=== PATIENT | female | born 1975 | race American Indian/Alaskan Native ===

== ENCOUNTER 2019-03-08 14:31 | Outpatient (CLI) | payer OTHER | END 2019-03-08 14:32 | disposition home or self-care (01) | LOC: LABHHL 14:31 | PROVIDERS: ATTEND Surgery | DX: C50.911 Malignant neoplasm of unspecified site of right female breast (principal) | CPT/HCPCS: 88305; 88341; 88342 ==

== ENCOUNTER 2019-03-31 08:43 | Outpatient (CLI) | payer OTHER ==
--- NOTE | 2019-03-31 15:43 | Magnetic Resonance Report ---
BILATERAL BREAST MR WITHOUT AND WITH GADOLINIUM INDICATION: Newly diagnosed right breast cancer. Status post right ultrasound-guided needle biopsy o f 2 right breast masses on 03/07/2019. Pathology: 9:00 invasive carcinoma with medullary features grade 3 and 8:00 2 cm from the nipple invasive carcinoma with medullary features grade 3 ER/VA positive an d HER-2 positive with a Ki-67 75% at COMPARISONS: 02/05/2019 and 10/22/2018 mammograms TECHNIQUE: Axial 1.0 mm T1 without, axial high-resolution 2.0 mm T2 and axial 1.0 mm dynamic vibrant high-resolution postcontrast T1 fat saturation sequences on a 1.5 Shellie magnet. The examination was p erformed with an 8-channel dedicated [place] breast coil. Post-processing with CAD and subtraction was performed on an [employer] workstation. 18 cc of MultiHance was injected without incident for the con trast portion of the exam. Consent was obtained prior to the administration of the contrast. FINDINGS: RIGHT BREAST: Minimal background parenchymal enhancement. A mass at 8:30 o'clock 3.6 cm from the nipp le contains a biopsy clip and correlates with the known cancer. It measures 2.3 x 2.0 x 1.8 cm and de monstrates heterogeneous enhancement with mixed kinetics, 127% peak enhancement and 33% type III wash out. A second mass at 8:00 5.2 cm from the nipple measures 1.4 x 1.2 x 1.1 cm. It contains a biopsy c lip and correlates with a known cancer. This mass demonstrates heterogeneous enhancement with mixed k inetics, 129% peak enhancement and 3% type III washout. No other mass or suspicious enhancement. No s uspicious lymph nodes. LEFT BREAST: Minimal background parenchymal enhancement. No mass or suspicious enhancement. No suspic ious lymph nodes. IMPRESSION: Known right breast cancers at at 8:30 o'clock and at 8:00. No other suspicious lesion of either breast. No suspicious lymph nodes. BI-RADS Category 6--Known Cancer Signer Name: Rubio Hicks MD Signed: 03/31/2019 3:39 PM Workstation Name: [id number]
== END 2019-03-31 08:44 | disposition home or self-care (01) ==
LOC: SPVIMAG 08:43
PROVIDERS: ATTEND Surgery
DX: C50.511 Malignant neoplasm of lower-outer quadrant of right female breast (principal)
CPT/HCPCS: A9577; C8908; 77049

== ENCOUNTER 2019-04-12 08:45 | Day surgery (SDC) | payer OTHER ==
[~2019-04-12 08:45] MED LIST: ANCEF/STERILE WATER 2 GM/20 ML 2 GM/20 ML SYRINGE IV NR
[2019-04-12] MEDS ORDERED: ZOFRAN IV PRN (09:48)
[2019-04-12] MEDS ORDERED: SUBLIMAZE IV PRN (09:48)
--- NOTE | 2019-04-12 09:49 | Anesthesia Day of Surgery ---
Anesthesia Day of Surgery - Day of Surgery Patient Examined: Yes Patient H&P Reviewed: Yes Patient is NPO: Yes
--- NOTE | 2019-04-12 09:53 | Anesthesia Consultation ---
Anesthesia Consult and Med Hx Date of service: 04/12/19 - Airway Anesthetic Teeth Evaluation: Good ROM Head & Neck: Adequate Mallampati Class: Class II Intubation Access Assessment: Good - Pre-Operative Health Status ASA Pre-Surgery Classification: ASA2 Proposed Anesthetic Plan: General (MAC; GA if needed), MAC - Pulmonary Hx Smoking: No Hx Sleep Apnea: No - Central Nervous System Hx Psychiatric Problems: No - Hematic Hx Anemia: No - Other Systems Hx Alcohol Use: No Hx Substance Use: No Hx Cancer: Yes (R breast)
[2019-04-12] MEDS ORDERED: ceFAZolin 2 GM in NACL 0.9% 100 ML IV ONE (10:00)
[2019-04-12] MEDS ORDERED: LACTATED RINGERS 1,000 ML IV SCH (10:00)
[2019-04-12] MEDS ORDERED: DIPRIVAN 10 MG/ML IV ONE ×2 (10:20→11:15)
[2019-04-12] MEDS ORDERED: VERSED ONE (10:21)
[2019-04-12] MEDS ORDERED: XYLOCAINE MPF 2% ONE (10:22)
[2019-04-12] MEDS ORDERED: SUBLIMAZE ONE (10:23)
[2019-04-12] MEDS ORDERED: HEPARIN 10,000 UNITS/10 ML IV ONE (10:30)
[2019-04-12] MEDS ORDERED: NACL 0.9% IR ONE (10:30)
[2019-04-12] MEDS ORDERED: XYLOCAINE 1% 20 mL INFILTRATI ONE (10:30)
[2019-04-12] MEDS ORDERED: NACL 0.9% IV ONE (10:30)
[2019-04-12] MEDS ORDERED: MARCAINE 0.25% INFILTRATI ONE ×2 (10:30→10:47)
[2019-04-12] MEDS ORDERED: XYLOCAINE 1% 20 mL ONE (10:47)
[2019-04-12] MEDS ORDERED: HEPARIN 10,000 UNITS/10 ML ONE (10:47)
[2019-04-12] MEDS ORDERED: NACL 0.9% 100 ML ONE (10:47)
--- NOTE | 2019-04-12 11:55 | Short Stay Summary ---
Short Stay Documentation Date of service: 04/12/19 - History Principal diagnosis: right breast cancer H&P: obtained from office - Allergies and Medications Current Medications: Allergies No Known Allergies Allergy (Unverified 05/03/15 13:51) Home Medications Medication Instructions Recorded Confirmed Last Taken Type Ergocalciferol [Vitamin D2] 50,000 units PO 1XW 04/11/19 04/11/19 Unknown History Active Medications Fentanyl (Sublimaze) 50 mcg IV Q5MIN PRN PRN Reason: Pain , Severe (7-10) Stop: 04/12/19 20:00 Cefazolin Sodium (Ancef/Sterile Water 2 Gm/20 Ml) 2 gm in 20 mls @ 80 mls/hr IV PREOP NR Stop: 04/12/19 18:00 Lactated Ringer's (Lactated Ringers) 1,000 mls @ 100 mls/hr IV DIRECT KARTHIK Last Admin: 04/12/19 10:00 Dose: 100 mls/hr Documented by: Ondansetron HCl (Zofran) 4 mg IV ONCE PRN PRN Reason: Nausea And Vomiting - Brief post op/procedure progress note Date of procedure: 04/12/19 Pre-op diagnosis: right breast cancer Post-op diagnosis: same Procedure: placement of left internal jugular port a cath, mindray ultrasound guidance Anesthesia: MAC, local Findings: good placement of port without PTX on post op CXR Surgeon: CHASTITY CABAN Estimated blood loss: minimal Pathology: none Condition: stable - Hospital course Hospital course: Pt observed in PACU and discharged to home in stable condition when criteria met - Disposition Condition at discharge: Good Disposition: DC-01 TO HOME OR SELFCARE Short Stay Discharge Plan Activity: no restrictions Diet: regular Wound: open to air, other (see printed discharge instructions) Additional Instructions: see printed discharge instructions Follow up with: JAUN ALMANZAR MD [Primary Care Provider] - 7 Days CHASTITY CABAN DO [Staff Physician] - 10 Days Prescriptions: HYDROcodone/APAP 5-325 [[place] 5/325] 1 each PO Q6HR PRN #10 tablet PRN Reason: Pain
--- NOTE | 2019-04-12 12:09 | Fluoroscopy Report ---
FLUOROSCOPY CENTRAL VENOUS DEVICE PLACEMENT HISTORY: Breast cancer, left Lyvgic-z-Esid insertion FINDINGS: Fluoroscopy was provided by radiology during left Kurpba-j-Tcfu insertion. A single image o f the chest was obtained. 43 seconds of fluoroscopy time was utilized. The image demonstrates a left IJ Cznpqs-w-Wjeh which terminates in the superior right atrium. The lungs are generally clear. There is no evidence for pneumothorax or pleural fluid. Heart and mediastinal structures are unremarkable. IMPRESSION: Left Gpylxd-h-Ckcx placement as described. No pneumothorax. Signer Name: Heraclio Torres Jr, MD Signed: 04/12/2019 12:04 PM Workstation Name: [id number]
[2019-04-12 13:17] VITALS: BP 130/66
--- NOTE | 2019-04-12 15:43 | Operative Report ---
PREOPERATIVE DIAGNOSIS: Right breast cancer. POSTOPERATIVE DIAGNOSIS: Right breast cancer. PROCEDURE: Placement of left internal jugular Port-A-Cath, Mindray ultrasound guidance. ANESTHESIA: MAC local. FINDINGS: Good placement of port without pneumothorax and postop chest x-ray. SURGEON: Gale Carlos DO. ESTIMATED BLOOD LOSS: Minimal. PATHOLOGY: None. CONDITION DISPOSITION: The patient is stable to PACU. HISTORY OF PRESENT ILLNESS AND INDICATIONS: The patient is a 44-year-old female who was recently diagnosed with right-sided breast cancer and deemed a candidate for chemotherapy. She was seen in the office. All procedure, risks, benefits and alternatives were discussed with her. Consent was obtained. All questions were answered. PROCEDURE IN DETAIL: The patient was identified in the preoperative area and taken back to the operating room and placed on the operating table in supine position. After anesthesia was induced, bilateral arms were tucked and all bony prominences padded and a shoulder roll was placed. Bilateral upper chest and neck was prepped and draped in the usual sterile fashion. A timeout was performed. The patient was placed in Trendelenburg position and using the [employer] ultrasound, the subclavian and internal jugular veins were identified on the left hand side. Local anesthetic was infiltrated in skin at the intended puncture site. Two attempts were made at access of the left subclavian vein using ultrasound guidance. Both times, there was a return of dark red nonpulsatile blood. However, this was sluggish. Attempts to pass the wire were unsuccessful even using fluoroscopic guidance. Pressure was held at the site for several minutes and hemostasis ensured. Therefore, it was decided to access the left internal jugular vein. This was identified on ultrasound and the skin was anesthetized with local anesthetic. The internal jugular vein on the left was accessed on the first stick and there was return of dark red nonpulsatile blood. The wire was threaded without resistance and position confirmed using fluoroscopy. The needle was then removed and the wire was affixed to the drapes using hemostat. I then turned my attention to creating the pocket. A 4-cm incision was made in the left upper chest after local anesthetic was infiltrated into the skin and subcutaneous tissue. Once the incision was made, dissection was carried down through skin and subcutaneous tissue using Bovie electrocautery until the prepectoral fascia was identified. A subcutaneous pocket was then created for the port using combination of blunt dissection and electrocautery. The pocket was checked for hemostasis along the way. The tunneler and catheter was then inserted through the pocket and to the wire and brought out at the wire. The dilator catheter sheath was then inserted over the wire under direct fluoroscopic guidance. The wire and dilator were removed and the port catheter was inserted through the break-away sheath in the usual fashion. The break-away sheath was removed. The port was then cut to size and assembled in the usual fashion. The catheter was pulled back until the tip was seen in the superior vena cava. The port was sutured into the pocket at two locations using 2-0 Vicryl interrupted sutures. The port was tested with heparinized saline. There was return of dark red blood and the port flushed easily. The port was instilled with 3000 units of heparin. The wounds were checked for hemostasis and then the skin was closed. The deep dermal layer was closed with 3-0 Vicryl interrupted sutures. Both skin incisions were closed with 4-0 Monocryl subcuticular stitches and skin glue. At the end of the case, all sponge, instrument and sharp counts were correct x 2. A postoperative chest x-ray performed showed the port to be in good position without pneumothorax. The patient was taken to PACU in stable condition. JOB# [id number] JUANA/STACI
--- NOTE | 2019-04-13 09:53 | Post Anesthesia Evaluation ---
- Post Anesthesia Evaluation Patient Participated: Yes Airway Patent: Yes Stable Respiratory Function: Yes Nausea/Vomiting: No Temp > 96.8F: Yes Pain Manageable: Yes Adequeate Hydration: Yes Anesthesia Complications: No Block Receding Appropriately: Not Applicable Patient on Ventilator: No
== END 2019-04-12 08:46 | disposition home or self-care (01) ==
LOC: OR 08:45
PROVIDERS: ATTEND Surgery
DX: C50.911 Malignant neoplasm of unspecified site of right female breast (principal); Z79.899 Other long term (current) drug therapy; Z98.890 Other specified postprocedural states
CPT/HCPCS: 36561; 77001; 81025; C1788; J0690; J1644; J2250; J2704; J3010; J7120

== ENCOUNTER 2019-08-22 14:35 | Outpatient (CLI) | payer OTHER ==
--- NOTE | 2019-08-22 15:49 | Mammography Report ---
DIGITAL BILATERAL DIAGNOSTIC MAMMOGRAM WITH CAD, 08/22/2019 INDICATION: Follow-up 2 known right breast cancers after chemotherapy. TECHNIQUE: Digital bilateral mammographic imaging was performed. This examination was interpreted with the benefit of Computer-aided Detection analysis. COMPARISON: 10/22/2018 and 03/07/2019 Breast Density: The breasts are heterogeneously dense, which may obscure small masses. FINDINGS: 2 right outer biopsy clips correlate with known cancers. Mammographic masses have resolved. No mass, architectural distortion or suspicious calcifications. Moderate bilateral skin thickening i s unchanged. IMPRESSION: A positive mammographic response to chemotherapy and no mammographic evidence of malignan cy. Follow up recommendation: Based on additional treatment. BI-RADS Category 6: Known Biopsy-Proven Malignancy. A "normal" or negative report should not discourage follow up or biopsy of a clinically significant f inding. A written summary of these findings will be mailed to the patient. The patient will be entered into a mammography reporting system which will generate a reminder letter for the patient's next appointmen t at the appropriate interval. According to the [employer], yearly mammograms are recommended starting at age 40 and continuing as long as a woman is in good health. Breast MRI is recommended for women with an mary roximately 20-25% or greater lifetime risk of breast cancer, including women with a strong family his tory of breast or ovarian cancer and women who have been treated for Hodgkin's disease. Signer Name: Rubio Hicks MD Signed: 08/22/2019 3:45 PM Workstation Name: [id number]
== END 2019-08-22 14:36 | disposition home or self-care (01) ==
LOC: SPVWC 14:35
PROVIDERS: ATTEND Surgery
DX: C50.911 Malignant neoplasm of unspecified site of right female breast (principal)
CPT/HCPCS: 77066

== ENCOUNTER 2019-09-28 05:54 | Day surgery (SDC) | payer OTHER ==
[~2019-09-28 05:54] MED LIST changes: -ANCEF/STERILE WATER 2 GM/20 ML 2 GM/20 ML SYRINGE IV NR; +ceFAZolin/Water 2 GM/20 ML 2 GM/20 ML SYRINGE IV NR
[2019-09-28] MEDS ORDERED: fentaNYL 100 MCG/2 ML INJ IV PRN (06:00)
[2019-09-28] MEDS ORDERED: CELECOXIB 200 MG CAP PO NR (06:00)
[2019-09-28] MEDS ORDERED: GABAPENTIN 300 MG CAP PO NR (06:00)
[2019-09-28] MEDS ORDERED: MIDAZOLAM 2 MG/2 ML INJ IV NR (06:00)
[2019-09-28] MEDS ORDERED: LACTATED RINGERS 1,000 ML IV SCH (07:00)
[2019-09-28] MEDS ORDERED: METHYLENE BLUE 50 MG/10 ML AMP ONE ×2 (07:22→09:02)
--- NOTE | 2019-09-28 07:22 | Anesthesia Day of Surgery ---
Anesthesia Day of Surgery - Day of Surgery Patient Examined: Yes Patient H&P Reviewed: Yes Patient is NPO: Yes
--- NOTE | 2019-09-28 07:22 | Anesthesia Consultation ---
Anesthesia Consult and Med Hx Date of service: 09/28/19 - Airway Anesthetic Teeth Evaluation: Good ROM Head & Neck: Adequate Mental/Hyoid Distance: Adequate Mallampati Class: Class II Intubation Access Assessment: Good - Pulmonary Exam CTA: Yes - Cardiac Exam Cardiac Exam: No Murmur - Pre-Operative Health Status ASA Pre-Surgery Classification: ASA2 Proposed Anesthetic Plan: General Nerve Block: PEC - Pulmonary Hx Smoking: No Hx Sleep Apnea: No - Central Nervous System Hx Psychiatric Problems: No - Hematic Hx Anemia: Yes ( HGB/HCT 10.0/30.2 (09/21/2019)) - Other Systems Hx Alcohol Use: No Hx Substance Use: No Hx Cancer: Yes
[2019-09-28] MEDS ORDERED: SODIUM CHLORIDE P/F VIAL 10 ML 10 ML ONE ×2 (07:23→09:03)
[2019-09-28] MEDS ORDERED: LIDOCAINE (1%) 10 MG/1 ML VIAL 20 ML MDV INFILTRATI NR (07:56)
[2019-09-28] MEDS ORDERED: LIDOCAINE (1%) 10 MG/1 ML VIAL 20 ML MDV ONE (07:56)
[2019-09-28] MEDS ORDERED: KETOROLAC 30 MG/1 ML INJ ONE (08:00)
[2019-09-28] MEDS ORDERED: BUPIVACAINE/PF (0.5%) 5 MG/1 ML 10 ML VIAL INFILTRATI NR (08:00)
[2019-09-28] MEDS ORDERED: FAMOTIDINE 20 MG TAB PO NR (08:00)
[2019-09-28] MEDS ORDERED: LIDOCAINE MPF (2%) 20 MG/1 ML VIAL 5 ML ONE (08:35)
[2019-09-28] MEDS ORDERED: ROCURONIUM 50 MG/5 ML INJ IV ONE (08:35)
[2019-09-28] MEDS ORDERED: PROPOFOL 200 MG/20 ML VIAL IV ONE (08:36)
[2019-09-28] MEDS ORDERED: fentaNYL 100 MCG/2 ML INJ ONE (08:36)
[2019-09-28] MEDS ORDERED: HYDROmorphone 1 MG/1 ML INJ ONE (08:36)
[2019-09-28] MEDS ORDERED: dexAMETHasone 4 MG/ML VIAL IV NR (09:00)
[2019-09-28] MEDS ORDERED: ONDANSETRON 4 MG/2 ML INJ ONE (09:19)
[2019-09-28] MEDS ORDERED: dexAMETHasone 20 MG/5 ML VIAL ONE (09:19)
[2019-09-28] MEDS ORDERED: METOCLOPRAMIDE 10 MG/2 ML INJ ONE (09:19)
[2019-09-28] MEDS ORDERED: PHENYLEPHRINE/NS 1,000 MCG/10 ML SYRINGE (OR USE) IV ONE (09:45)
[2019-09-28] MEDS ORDERED: METHYLENE BLUE 50 MG/10 ML AMP IRRIGATION ONE (09:52)
[2019-09-28] MEDS ORDERED: WATER FOR IRRIG STERILE 1,500 ML BOTTLE IR ONE (09:52)
[2019-09-28] MEDS ORDERED: SODIUM CHLORIDE 0.9% P/F 10 ML VIAL INFILTRATI ONE (09:52)
--- NOTE | 2019-09-28 09:55 | Mammography Report ---
NEEDLE LOCALIZATION AND HOOKWIRE PLACEMENT RIGHT BREAST X2 INDICATION: RT BREAST CANCER. 2 right breast cancers. COMPARISON: 08/22/2019 and 03/07/2019 mammograms. FINDINGS: Informed consent was obtained by Dr. Hill. Using mammographic guidance, sterile technique and 1% lidocaine for local anesthesia, two 3 cm Katz 3 hookwires were placed from a lateral approach to localize biopsy clips corresponding to known cancers. Satisfactory positioning was confirmed with ort hogonal views. The hook wires were deployed and the needles were removed. The patient tolerated the procedure well and there were no apparent complications. She was taken to [facility] operative suite in good condition. IMPRESSION: 1. Uncomplicated hookwire placement x2 right breast. Signer Name: Rubio Hicks MD Signed: 09/28/2019 9:51 AM Workstation Name: [id number]
--- NOTE | 2019-09-28 09:55 | Mammography Report ---
NEEDLE LOCALIZATION AND HOOKWIRE PLACEMENT RIGHT BREAST X2 INDICATION: RT BREAST CANCER. 2 right breast cancers. COMPARISON: 08/22/2019 and 03/07/2019 mammograms. FINDINGS: Informed consent was obtained by Dr. Hill. Using mammographic guidance, sterile technique and 1% lidocaine for local anesthesia, two 3 cm Katz 3 hookwires were placed from a lateral approach to localize biopsy clips corresponding to known cancers. Satisfactory positioning was confirmed with ort hogonal views. The hook wires were deployed and the needles were removed. The patient tolerated the procedure well and there were no apparent complications. She was taken to [facility] operative suite in good condition. IMPRESSION: 1. Uncomplicated hookwire placement x2 right breast. Signer Name: Rubio Hicks MD Signed: 09/28/2019 9:51 AM Workstation Name: [id number]
[2019-09-28] MEDS ORDERED: LACTATED RINGERS 1,000 ML ONE (10:16)
--- NOTE | 2019-09-28 11:54 | Mammography Report ---
SPECIMEN RADIOGRAPH RIGHT BREAST INDICATION: POST EXC BX. 2 known cancers. COMPARISON: Same day needle localization images. FINDINGS: 2 biopsy clips and 2 hookwires are identified within the specimen. IMPRESSION: 1. Excision of the targeted lesions.. Signer Name: Rubio Hicks MD Signed: 09/28/2019 11:49 AM Workstation Name: [id number]
[2019-09-28] MEDS ORDERED: BACITRACIN ZINC OINT 28.4 GM TP ONE (12:14)
[2019-09-28] MEDS ORDERED: NEOSTIGMINE 10MG/10 ML INJ MDV ONE (12:25)
[2019-09-28] MEDS ORDERED: GLYCOPYRROLATE 0.4 MG/2 ML INJ ONE (12:25)
--- NOTE | 2019-09-28 12:41 | Operative Report ---
Operative Report Operative Report: Operative Report: September 28, 2019 Preoperative diagnosis: Right breast cancer of the upper outer and lower outer quadrant Postoperative diagnosis: Same Procedure: Right needle localization partial mastectomy of the upper outer and lower outer quadrant and SLNB Surgeon: Kirsten Hill MD Therapist Phys: Mr. Kiser Anesthesia: General Findings: Right wires and clips present within radiograph specimen; x 2 SLN Complications: None EBL: Less than 50 cc Disposition: PACU in good condition Indications for operative procedure: This is a 44 year old lady with newly diagnosed multifocal right breast cancer of the upper outer/lower outer quadrant, Stage I/II cT1c/2N0M0 ER/KS/Her-2 positive. She recently completed neoadjuvant chemotherapy and she wished to proceed with breast conservation. Patient understand if margins were close or positive would need to proceed with a right total mastectomy. Radiology bracketed both areas of cancer of IDCA breast cancer mass. She understands the role of adjuvant radiation therapy. She wished to proceed with the above procedure. Procedure in detail: The patient was taken to radiology for wire placement for localization known area of cancer. Anesthesia placed right pectoral block. Patient was then taken to the operating room. Gen. anesthesia was administered. The right nipple was injected with radioisotope and 1 cc of methylene blue dye. Right breast and axilla were prepped and draped in the normal sterile operative fashion. The wires were identified. Timeout was performed. Gamma probe was inserted into the axilla. The area of hot spot was identified. A right axillary incision was made with a 15 blade knife with dissection taken down to the subcutaneous tissues. The axillary fascia was opened with the Bovie cautery. 2 SLNs were identified and both blue. All remaining counts were less than 10% of the highest count. Lymph node was sent to pathology for permanent processing. Hemostasis was obtained in the right axillary cavity. Axillary cavity was appropriately irrigated and suctioned. Hemostasis was noted. Axillary fascia was approximated and closed using interrupted 3-0 Vicryl and the skin brought together and closed using a running 4-0 Monocryl followed by skin affix. Attention was then taken towards the right breast. Ultrasound was used to christiano the area of incision as well with incision encompassing wires given close proximity to skin. Lateral breast incision was made with a 15 blade knife encompassing skin and dissection taken down to subcutaneous tissues. First began raising of the superior flap with dissection take down to the pectoralis muscle, followed by raising of the inferior flap, medial flap and lateral flap with all flaps taken down to the pectoralis muscle. The breast area of concern was appropriately removed posteriorly from the pectoralis muscle with the aid of the Bovie cautery. The wires were not encountered. Specimen was marked and then sent to pathology and radiology; radiograph specimen with wires and clips present. Breast cavity was irrigated and hemostasis was obtained. The posterior deep breast tissues were approximated and closed using interrupted 3-0 Vicryl. The subcutaneous tissues were approximated and closed using interrupted 3-0 Vicryl followed by closing of the skin with a running 4-0 Monocryl and skin affix. The patient tolerated surgery very well and she was awaken from anesthesia without any complication and transported to PACU in good condition.
--- NOTE | 2019-09-28 12:44 | Short Stay Summary ---
Short Stay Documentation Date of service: 09/28/19 - History H&P: obtained from office - Allergies and Medications Current Medications: Allergies No Known Allergies Allergy (Verified 09/22/19 16:56) Home Medications Medication Instructions Recorded Confirmed Last Taken Type HYDROcodone/APAP 5-325 [Fred 1 each PO Q6HR PRN #20 tablet 09/28/19 Unknown Rx 5/325] Active Medications Celecoxib (Celebrex) 200 mg PO PREOP NR Stop: 09/28/19 18:00 Last Admin: 09/28/19 07:30 Dose: 200 mg Documented by: Fentanyl (Sublimaze) 100 mcg IV ONCE PRN PRN Reason: sedation for nerve block Stop: 09/28/19 18:00 Last Admin: 09/28/19 08:46 Dose: 100 mcg Documented by: Gabapentin (Gabapentin) 300 mg PO PREOP NR Stop: 09/28/19 18:00 Last Admin: 09/28/19 07:30 Dose: 300 mg Documented by: Cefazolin Sodium (Ancef/Sterile Water 2 Gm/20 Ml) 2 gm in 20 mls @ 80 mls/hr IV PREOP NR; Protocol Stop: 09/28/19 23:59 Lactated Ringer's (Lactated Ringers) 1,000 mls @ 100 mls/hr IV DIRECT KARTHIK Last Admin: 09/28/19 08:30 Dose: 100 mls/hr Documented by: Lidocaine (Xylocaine 1% 20 Ml) 20 ml INFILTRATI ONCE NR Stop: 09/28/19 16:00 Midazolam HCl (Versed) 2 mg IV PREOP NR Stop: 09/28/19 20:00 Last Admin: 09/28/19 08:45 Dose: 2 mg Documented by: - Brief post op/procedure progress note Date of procedure: 09/28/19 Pre-op diagnosis: Right breast cancer Post-op diagnosis: same Procedure: Right needle localization partial mastectomy and SLNB Anesthesia: GETA Findings: Wire and clips present; x2 SLNs Surgeon: XIOMARA GONZALEZ Estimated blood loss: 50-100ml Pathology: list Specimen disposition: to lab Condition: stable - Disposition Condition at discharge: Good Disposition: DC-01 TO HOME OR SELFCARE Short Stay Discharge Plan Activity: other (no heavy lifting) Diet: regular Wound: keep clean and dry (may shower in 48 hours; no baths; wear breast binder) Follow up with: JAUN ALMANZAR MD [Primary Care Provider] - 7 Days XIOMARA GONZALEZ MD [Staff Physician] - 7 Days Forms: Outpatient Surgery DC Inst. Prescriptions: HYDROcodone/APAP 5-325 [Fred 5/325] 1 each PO Q6HR PRN #20 tablet PRN Reason: Pain
[2019-09-28 13:30] VITALS: BP 116/65
== END 2019-09-28 14:05 | disposition home or self-care (01) ==
LOC: OR 05:54
PROVIDERS: ATTEND Surgery
DX: C50.411 Malignant neoplasm of upper-outer quadrant of right female breast (principal); C50.511 Malignant neoplasm of lower-outer quadrant of right female breast; I89.8 Other specified noninfective disorders of lymphatic vessels and lymph nodes; D64.9 Anemia, unspecified; Z79.899 Other long term (current) drug therapy; Z98.890 Other specified postprocedural states
CPT/HCPCS: 19281; 19282; 19301; 38525; 38792; 76098; 78800; 81025; 88307; 88342; A9541; J0690; J1100; J1170; J1885; J2250; J2370; J2405; J2704; J2710; J2765; J3010; J7120; Q9968; 64450; 88333

== ENCOUNTER 2020-05-08 07:13 | Day surgery (SDC) | payer OTHER ==
[2020-05-08] MEDS ORDERED: LIDOCAINE MPF (2%) 20 MG/1 ML VIAL 5 ML ONE (07:33)
[2020-05-08] MEDS ORDERED: fentaNYL 100 MCG/2 ML INJ ONE (07:33)
[2020-05-08] MEDS ORDERED: GLYCOPYRROLATE 0.4 MG/2 ML INJ ONE (07:33)
[2020-05-08] MEDS ORDERED: PHENYLEPHRINE/NS 1,000 MCG/10 ML SYRINGE (OR USE) IV ONE (07:33)
[2020-05-08] MEDS ORDERED: propofoL 200 MG/20 ML VIAL IV ONE (07:34)
[2020-05-08 07:45] VITALS: BP 109/80
[2020-05-08] MEDS ORDERED: LIDOCAINE (1%) 10 MG/1 ML VIAL 20 ML MDV ONE (08:15)
[2020-05-08] MEDS ORDERED: BUPIVACAINE-EPINEPHRINE/PF 0.5%-1:200,000 (30 ML) VIAL INFILTRATI ONE (08:15)
[2020-05-08] MEDS ORDERED: BUPIVACAINE/PF (0.25%) 2.5 MG/ML 30 ML VIAL INFILTRATI ONE (08:34)
[2020-05-08] MEDS ORDERED: LIDOCAINE (1%) 10 MG/1 ML VIAL 20 ML MDV INFILTRATI ONE (08:35)
--- NOTE | 2020-05-08 15:40 | Procedure Note ---
Date of procedure: 05/08/20 Pre-op diagnosis: Breast cancer status post port placement Post-op diagnosis: same Procedure: Removal of Ozerip-n-Rnwf Findings: Patient identified in the preoperative area and brought back to the procedure room. She was placed in supine position and the left chest was prepped and draped in the usual sterile fashion. A timeout was performed. The patient was then placed in slight Trendelenburg. The skin and subcutaneous tissue at the old scar was anesthetized with local anesthetic. An incision was made through the previous scar using a 15 blade and dissection carried down through the subcutaneous tissue using blunt dissection with a hemostat. The port was then visualized and the catheter grasped between 2 hemostats. The catheter was transected and removed. Pressure was held for 5 minutes. No bleeding was seen from the tract. The subcutaneous port was then grasped with a hemostat and dissected from the surrounding capsule using blunt dissection with a hemostat. Once it was completely freed it was removed from the wound and passed off the table as a specimen. The wound was irrigated with saline and hemostasis very carefully ensured. There was no bleeding seen. The incision was then closed in a layered fashion. The deep dermal layer was closed with interrupted 3-0 Vicryl suture. The skin was closed using 4-0 Monocryl running subcuticular stitch and skin glue. Once the glue was dry a piece of Telfa was placed over the incision and secured with a Tegaderm. The port and the catheter was sent to pathology for identification. At the end of the case all sponge, instrument, sharp counts were correct x2. The patient tolerated the procedure very well and was discharged home in stable condition. Anesthesia: local Surgeon: CHASTITY CABAN Estimated blood loss: minimal Pathology: list (port and catheter - for ID only) Specimen disposition: to lab Condition: stable Disposition: other (HOME)
== END 2020-05-08 07:14 | disposition home or self-care (01) ==
LOC: OR 07:13
PROVIDERS: ATTEND Surgery
DX: Z45.2 Encounter for adjustment and management of vascular access device (principal); Z85.3 Personal history of malignant neoplasm of breast; Z79.899 Other long term (current) drug therapy; Z90.11 Acquired absence of right breast and nipple; Z98.890 Other specified postprocedural states; Z86.2 Personal history of diseases of the blood and blood-forming organs and certain disorders involving the immune mechanism
CPT/HCPCS: 36590; 88300; J2704; J3010; J2370

== ENCOUNTER 2020-10-25 10:24 | Outpatient (CLI) | payer OTHER ==
--- NOTE | 2020-10-25 11:12 | Mammography Report ---
DIGITAL SCREENING MAMMOGRAM WITH TOMOSYNTHESIS WITH CAD, 10/25/2020 CLINICAL INFORMATION / INDICATION: Routine Screening Mammography. TECHNIQUE: Digital bilateral 2D and 3D mammography with tomosynthesis was obtained in the craniocaud al and mediolateral oblique projections. Computer-Aided Detection (CAD) analysis was used for interp retation of this study. COMPARISON: Diagnostic right mammogram from 05/31/2020, diagnostic bilateral mammogram from 08/22/2019 , screening mammogram from 10/22/2018 FINDINGS: Breast Density: The breasts are heterogeneously dense, which may obscure small masses. No dominant mass, suspicious calcifications, or architectural distortion in either breast. Bilateral breast skin thickening and right breast postsurgical changes are stable. IMPRESSION: No mammographic evidence of malignancy. Follow up recommendation: Routine yearly BI-RADS Category 2: Benign. A "normal" or negative report should not discourage follow up or biopsy of a clinically significant f inding. A written summary of these findings will be mailed to the patient. The patient will be entered into a mammography reporting system which will generate a reminder letter for the patient's next appointmen t at the appropriate interval. The [employer] recommends yearly mammograms starting at age 40 and continuing as l hermelindo as a woman is in good health. Breast MRI is recommended for women with an approximate 20-25% or greater lifetime risk of breast cancer, including women with a strong family history of breast or ova maricruz cancer or who have been treated for Hodgkin's disease. Signer Name: Matty Hernández MD Signed: 10/25/2020 11:07 AM Workstation Name: [email or web address]
== END 2020-10-25 10:25 | disposition home or self-care (01) ==
LOC: SPVWC 10:24
PROVIDERS: ATTEND Surgery
DX: Z12.31 Encounter for screening mammogram for malignant neoplasm of breast (principal)
CPT/HCPCS: 77063; 77067